=== PATIENT | female | born 1945 | race Caucasian/White ===

== ENCOUNTER → 2018-01-20 | Outpatient (CLI) | payer OTHER | LOC: FIMAGING 11:09 | PROVIDERS: ATTEND Physician Assistant Surgical | DX: M41.85 Other forms of scoliosis, thoracolumbar region (principal); M43.15 Spondylolisthesis, thoracolumbar region; M43.13 Spondylolisthesis, cervicothoracic region; M51.36 Other intervertebral disc degeneration, lumbar region; M16.0 Bilateral primary osteoarthritis of hip; Z98.1 Arthrodesis status ==

== ENCOUNTER 2018-03-16 05:55 | Inpatient (IN) | payer OTHER ==
[2018-03-16] MEDS ORDERED: ceFAZolin 2 GM/DEXTROSE 100 ML IV ONE (06:30)
[2018-03-16] MEDS ORDERED: ACETAMINOPHEN 500 MG TAB PO ONE (06:30)
[2018-03-16] MEDS ORDERED: morphINE PF 0.2 MG in SYRINGE INTRATHECAL 1 SYR IT ONE (06:30)
[2018-03-16] MEDS ORDERED: fentaNYL 50 MCG in SYRINGE INTRATHECAL 1 SYR IT ONE (06:30)
[2018-03-16] MEDS ORDERED: GABAPENTIN 300 MG CAP PO ONE (06:30)
[2018-03-16] MEDS ORDERED: CITRATE DEXTROSE SOLN 500 ML BAG ONE ×2 (06:32→11:29)
[2018-03-16] MEDS ORDERED: BUPIVACAINE 0.25% 30 ML SDV ONE (06:32)
[2018-03-16] MEDS ORDERED: CHLORHEXIDINE GLUC HIBICLENS 118 ML BTL TP ONE (06:32)
[2018-03-16] MEDS ORDERED: THROMBIN (BOVINE) 20,000 UNIT VIAL TP ONE ×2 (06:32→08:42)
[2018-03-16] MEDS ORDERED: BACITRACIN 50,000 UNITS/10 ML SYR IRR ONE ×2 (06:33→11:35)
[2018-03-16] MEDS ORDERED: NS 1,000 ML IV ONE (06:33)
[2018-03-16] MEDS ORDERED: EPINEPHrine 1 MG/ML INJ ONE (06:33)
[2018-03-16] MEDS ORDERED: fentaNYL 250 MCG/5 ML INJ ONE (06:47)
--- NOTE | 2018-03-16 06:47 | PDHPUP ---
History & Physical Update H&P update statement: This history and physical update is based on an assessment of the patient which was completed after admission or registration (within 24 hours), but prior to the surgery/procedure. H&P update: H&P reviewed & patient examined
[2018-03-16] MEDS ORDERED: PROPOFOL/EMULSION 500 MG/50 ML BOTTLE IV ONE ×3 (06:48→11:26)
--- NOTE | 2018-03-16 07:07 | PDANEPAE ---
ANE History of Present Illness 72 year old woman for L1-S1 TLIF. History of thoracic aneurysm, htn, cad, depression. ANE Past Medical History - Cardiovascular History Hx Hypertension: Yes Hx Arrhythmias: No Hx Chest Pain: No Hx Coronary Artery / Peripheral Vascular Disease: Yes Hx CHF / Valvular Disease: No Hx Palpitations: No Cardiovascular History Comment: cad. hyperlipidemia. htn. cardiology notes on chart - Pulmonary History Hx COPD: No Hx Asthma/Reactive Airway Disease: No Hx Recent Upper Respiratory Infection: No Hx Oxygen in Use at Home: No Hx Sleep Apnea: No Sleep Apnea Screening Result - Last Documented: Positive Pulmonary History Comment: jaylen positive uses oral device- instructed pt to bring to hospital - Neurologic History Hx Cerebrovascular Accident: No Hx Seizures: No Hx Dementia: No Neurologic History Comment: hx of spinal fusion - Endocrine History Hx Diabetes: No - Renal History Hx Renal Disorders: No - Liver History Hx Hepatic Disorders: No - Neurological & Psychiatric Hx Hx Neurological and Psychiatric Disorders: Yes Neurological / Psychiatric History Comment: anxiety. depression - Cancer History Hx Cancer: No - Congenital Disorder History Hx Congenital Disorders: No - GI History Hx Gastrointestinal Disorders: Yes Gastrointestinal History Comment: ibs with diarrhea. hx of recent colonoscopy - Other Health History Other Health History: none - Chronic Pain History Chronic Pain: Yes (whole back down legs) - Surgical History Prior Surgeries: left hip repair 2005. pelvic repair 2010 s/p ski accident. knee scope 2010. bunionectomy 2010. bilateral TKA 2008. hernia repair 2013. spinal fusion l4-5 2015. right small finger repair 2016. right hip repair 2016 ANE Review of Systems Review of systems is: negative Review of Systems: - Exercise capacity METS (RN): 4 METS ANE Patient History - Allergies Allergies/Adverse Reactions: Ephedrine Analogues Allergy (Verified 03/11/18 10:40) "I get hyper" midazolam [From Versed] Allergy (Verified 03/11/18 10:40) "takes me 2x as long after surgery as "normal" people take t pecan nut Allergy (Verified 03/11/18 10:51) Rash tree nut Allergy (Verified 03/11/18 10:51) Rash walnut Allergy (Verified 03/11/18 10:51) Rash - Home Medications Home Medications: Acetaminophen [Tylenol ES 500 mg (*)] 500 mg PO BID 03/05/18 [Last Taken ] Atorvastatin Calcium [Lipitor 40 mg (*)] 40 mg PO HS 03/05/18 [Last Taken ] Cholecalciferol Vit D3 [Vitamin D3 2000 units tab (OTC)] 2,000 units PO DAILY [Last Taken 03/11/18] Desvenlafaxine Succinate [Pristiq ER] 100 mg PO DAILY 03/05/18 [Last Taken 03/16] Eszopiclone [Lunesta] 3 mg PO HS 03/05/18 [Last Taken 03/15/18] Gabapentin [Neurontin 300 MG (*)] 300 mg PO DAILY 03/05/18 [Last Taken 03/16/18] Herbals/Supplements -Info Only 1 ea PO DAILY 03/05/18 [Last Taken 03/11/18] Ibuprofen [Motrin (*)] 400 mg PO DAILY 03/05/18 [Last Taken 03/11/18] Irbesartan [Avapro 150 mg (*)] 150 mg PO DAILY 03/05/18 [Last Taken 03/09/18] LORazepam [Ativan (*)] 0.5 mg PO DAILY PRN 03/05/18 [Last Taken 03/15/18] Metoprolol Tartrate [Lopressor 25 mg (*)] 25 mg PO BID 03/05/18 [Last Taken ] Multivitamins [Multivitamin (*)] 1 each PO DAILY 03/05/18 [Last Taken 03/11/18] Oxybutynin Chloride [Ditropan Xl] 10 mg PO DAILY 03/05/18 [Last Taken 03/16/18] - NPO status NPO Since - Liquids (Date): 03/16/18 NPO Since - Liquids (Time): 04:45 NPO Since - Solids (Date): 03/15/18 NPO Since - Solids (Time): 18:30 - Smoking Hx Smoking Status: Never smoked - Family Anes Hx Family Hx Anesthesia Complications: none ANE Labs/Vital Signs - Vital Signs Blood Pressure: 148/100 Heart Rate: 55 Respiratory Rate: 16 O2 Sat (%): 95 Height: 172.72 cm Weight: 68.04 kg ANE Physical Exam - Airway Neck exam: FROM Mallampati Score: Class 2 Mouth exam: normal dental/mouth exam - Pulmonary Pulmonary: no respiratory distress - Cardiovascular Cardiovascular: regular rate and rhythym - ASA Status ASA Status: III ANE Anesthesia Plan Anesthesia Plan: general endotracheal anesthesia Lines/Monitors: arterial line
[2018-03-16] MEDS ORDERED: TRANEXAMIC ACID 1,000 MG in NS 100 ML IV ONE (07:15)
[2018-03-16] MEDS ORDERED: ALBUMIN 5% 250 ML BOTTLE IV ONE (07:16)
[2018-03-16 08:16] LABS: PLATELET COUNT 256 10^3/uL (150-400)
[2018-03-16] MEDS ORDERED: ALBUTEROL 3 ML DEYVIAL IH PRN (09:12)
[2018-03-16] MEDS ORDERED: HYDROmorphONE/DILAUDID 2 MG/ML INJ IVP PRN (09:12)
[2018-03-16] MEDS ORDERED: NALOXONE HCL 0.4 MG/ML INJ IVP PRN ×2 (09:12→14:06)
[2018-03-16] MEDS ORDERED: ONDANSETRON 4 MG/2 ML VIAL IVP PRN ×2 (09:12→13:55)
[2018-03-16] MEDS ORDERED: LABETALOL HCL 5 MG/ML 20 ML MDV IVP PRN (09:12)
[2018-03-16] MEDS ORDERED: LR 500 ML IV PRN (09:12)
[2018-03-16] MEDS ORDERED: fentaNYL 100 MCG/2 ML INJ IVP PRN (09:12)
[2018-03-16] MEDS ORDERED: POLYMYXIN B SULFATE 500,000 UNIT/10 ML SYR IRR ONE (11:25)
[2018-03-16] MEDS ORDERED: TRANEXAMIC ACID 1,000 MG/10 ML VIAL ONE (11:30)
[2018-03-16] MEDS ORDERED: HYDROmorphONE/DILAUDID 2 MG/ML INJ ONE (12:49)
[2018-03-16] MEDS ORDERED: MAGNESIUM HYDROXIDE 30 ML UDCUP PO PRN (13:55)
[2018-03-16] MEDS ORDERED: diphenhydrAMINE 25 MG CAP PO PRN (13:55)
[2018-03-16] MEDS ORDERED: ONDANSETRON DISINTEGRATING 4 MG TAB PO PRN (13:55)
--- NOTE | 2018-03-16 13:55 | POSTOPPROG ---
Post Op Note Date of Operation: 03/16/18 Surgeon: Len Block Edge Baster: Hilton Tucker Anesthesiologist: Amber Meneses Anesthesia: GET(General Endotracheal) Pre-op Diagnosis: L2/3,3/4, L5/S1 DjD, scoliosis, stenosis Post-op Diagnosis: same Indication: back and bilateral leg pain. severe DJD, stenosis Procedure: L4/5 hardware removal, L2/3,3/4,5/S1 TLIF, L1-S1 instrumentation Findings: severe DJd, stenosis Inf/Abcess present in the surg proc area at time of surgery?: No EBL: Greater than 1000 Complications: none Drains: Jose Eduardo Stevens (to bulb suction) Specimen(s): none
[2018-03-16] MEDS ORDERED: NS 1,000 ML IV SCH (14:00)
--- NOTE | 2018-03-16 14:05 | SOAPPROG ---
SOAP Progress Note Assessment/Plan: POST OP CHECK: Doing well s/p L1-S1 fusion with L2,3/4,5/S1 TLIFs Plan: CPM in PACU and trasfer to floor per protocol LIZZY to bulb suction HOB as tolerated 03/16/18 14:02 Subjective: awake, comfortable Objective: Vital Signs Temp Pulse Resp BP Pulse Ox 36.6 C 55 L 16 148/100 H 95 03/16/18 06:47 03/16/18 07:07 03/16/18 07:07 03/16/18 07:07 03/16/18 07:07 Laboratory Results 03/16/18 12:14 Neuro: GAR to command, sens +LT conversant oriented x4 Vitals: BP:143/125 HR:79o 02:100% ICD10 Worksheet Patient Problems: Problems Problem Status Onset Chest pain Acute
[2018-03-16] MEDS ORDERED: morphINE PCA 30 MG/30 ML PCA IV PRN (14:06)
--- NOTE | 2018-03-16 14:37 | POSTANESTH ---
Post Anesthetic Evaluation Cardiovascular Status: Normal, Stable Respiratory Status: Normal, Stable Level of Consciousness/Mental Status: Mildly Sleepy, Arousable Pain Control: Adequate, Prn Tx Ordered Nausea/Vomiting Control: Adequate, Prn Tx Ordered Complications Possibly Related to Anesthesia: None Noted
[2018-03-16] MEDS: METHOCARBAMOL 750 MG TAB PO PRN (14:47)
--- NOTE | 2018-03-16 14:54 | PDMN ---
Medical Necessity Medical necessity: MCG 72 yo s/[place] [facility] [facility] [place] w/ hardware removal, MC IP only.
--- NOTE | 2018-03-16 16:01 | GOP ---
[f rep st] OPERATIVE REPORT DATE OF OPERATION: 03/16/2018 SURGEON: Len Block MD NEUROSURGEON: Len Block MD AUTOMOTIVE WINDOW TINTER: Hilton Tucker PA-C ANESTHESIA: General endotracheal. PREOPERATIVE DIAGNOSIS: Severe lumbar degenerative scoliosis with multilevel spinal stenosis. Progr essive scoliotic curve/deformity. Retained hardware from prior fusion. Failed conservative care. H igh risk surgical candidate given age of 72 years, comorbidities, and required surgical intervention. POSTOPERATIVE DIAGNOSIS: Severe lumbar degenerative scoliosis with multilevel spinal stenosis. Prog ressive scoliotic curve/deformity. Retained hardware from prior fusion. Failed conservative care. High risk surgical candidate given age of 72 years, comorbidities, and required surgical intervention . PROCEDURE PERFORMED: Removal of posterior nonsegmental (pedicle screw) fixation at L4-5 with explora tion of spinal fusion. Placement of posterior segmental (pedicle screw and axle device) fixation fro m L1-S1 with right-sided far lateral transpedicular decompressions at the L2-3, L3-4, and L5-S1 level s. A redo posterior hemilaminotomy and decompression at L4-5 on the right.. L2-3, L3-4, and L5-S1 p osterior/transforaminal lumbar interbody fusion with 2 structural PEEK interbody spacers, local autog raft and bone morphogenic protein. Use of intraoperative microscopy, fluoroscopy, and computer volum etric stereotactic navigation with intraoperative neurophysiologic testing. Injection of intrathecal narcotic analgesics for postoperative pain control. FINDINGS: ESTIMATED BLOOD LOSS: 1200 cc. INDICATIONS: The patient is a 72-year-old woman with severe multilevel lumbar degenerative scoliosis and spinal stenosis who has undergone a prior L4-5 instrumented decompression and fusion and now pre sents for removal and replacement of instrumentation and extension of the fusion rostrally and caudal ly due to the progressive scoliotic curve, spinal stenosis, and intractable pain and debilitation aft er failing conservative care. DESCRIPTION OF PROCEDURE: After informed consent was obtained, the patient was taken to the operatin g room and placed in a prone position on the Jose Eduardo table. The lumbosacral area was prepped and stephanie ped in a sterile fashion. After fluoroscopic localization of the correct levels, the subcu and intra muscular tissues were infiltrated with local anesthesia. A midline linear incision was then created from approximately L1 through S1. This was carried down to the fascial layer, which was then incised using the monopolar electrocautery and carried in the subperiosteal plane along the spinous processe s and lamina bilaterally. Intraoperative fluoroscopy was again utilized to verify the correct levels . Following this, the dissection was carried out over the facet joints and over the prior instrument ation, which was carefully identified and removed in standard fashion. The L4-5 fusion was explored and inspected and noted to be solid. Following this and removal of all the cortical tissue off the b ones, far lateral decompressions were performed on the right at the L2-3, L3-4, and L5-S1 levels. Th e redo posterior hemilaminectomy and foraminotomy and medial facetectomy at the L4-5 level in order t o adequately decompress the entire canal and neural foramen and to make sure she did not have new res idual lower extremity symptoms to the best of my ability after surgery. Following adequate decompres ankita and copious irrigation and meticulous hemostasis, the fluoro navigation system was brought in an d using computer volumetric stereotactic navigation, pedicle screws were placed at L1-L2, L3-L4, L5 a nd S1. Each individual screw was tested neurophysiologically with monopolar electrostimulation and i nterpretation of the potentials by the surgeon. Because the patient had extremely soft bone and not great purchase, I decided to bring the O-arm Navigational system in because the screws did look good on the fluoroscopy unit, but she had a couple of screws that stimulated low and was not super confide nt about them given the weak bone screw interface at multiple levels. The O-arm neuronavigational sy stem was then utilized to reconstruct the 3D images that were visualized, and in fact, the right L2 s crew was slightly lateral and the bilateral S1 screws were slightly long. All these screws were wicho antony and replaced with better screws and their position verified using radiographs. Following this, s erial distraction was created first at L5-S1, then at L3-4, then at L2-3, during which time complete diskectomies were performed with preparation of the endplates and placement of 2 structural PEEK inte rbody spacers, local autograft, and bone morphogenic protein at each level for L2-3, L3-4, and L5-S1 posterior/transforaminal lumbar interbody fusions. The short rods were then removed and longer rods extending from L1-S1 with maximal lordosis were placed and secured with the locking caps torqued to t he specified range by the pizza chef. The wound was again copiously irrigated. Meticulous hemosta sis was achieved. The remaining lamina, facet joints, and transverse processes were then extensively decorticated, and the residual local autograft, along with bone morphogenic protein was placed out l aterally from L1 to S1 for posterolateral fusion. 200 mcg of Duramorph, along with 50 mcg of fentany l were injected intrathecally for postoperative pain control. Axial devices were then placed at L1-2 and L5-S1 in order to hopefully avoid junctional kyphosis and hardware failure due to the very weak bone screw interface and high risk for postoperative problems. Following verification of good positi on of the axial devices using radiographs, a drain was placed. The wound was again copiously irrigat ed and meticulous hemostasis was achieved. The wound was then closed in a layered fashion using inte rrupted Vicryl sutures, followed by Steri-Strips on the skin. COMPLICATIONS: None. DISPOSITION: The patient was extubated and transferred to the recovery room in stable condition. /[id number]/MODL
[2018-03-16] MEDS: ACETAMINOPHEN 500 MG TAB PO SCH ×2 (16:38→22:01)
[2018-03-16] MEDS: GABAPENTIN 300 MG CAP PO SCH ×2 (16:39→22:03)
[2018-03-16] MEDS: ceFAZolin 2 GM/DEXTROSE 100 ML IV SCH ×2 (16:40→23:55)
[2018-03-16] MEDS: POLYETHYLENE GLYCOL 3350 17 GM PKT PO SCH ×2 (17:01→22:05)
[2018-03-16] MEDS: ATORVASTATIN CALCIUM 40 MG TAB PO SCH (22:01)
[2018-03-16] MEDS: METOPROLOL TARTRATE 25 MG TAB PO SCH (22:03)
[2018-03-16] MEDS: FAMOTIDINE 20 MG TAB PO SCH (22:03)
[2018-03-16] MEDS: SENNOSIDES/DOCUSATE SODIUM TAB PO SCH (22:07)
[2018-03-17] MEDS: GABAPENTIN 300 MG CAP PO SCH ×3 (05:00→21:25)
[2018-03-17 05:48] LABS: PLATELET COUNT 181 10^3/uL (150-400)
[2018-03-17] MEDS: ACETAMINOPHEN 500 MG TAB PO SCH (06:17)
--- NOTE | 2018-03-17 07:44 | SOAPPROG ---
SOAP Progress Note Assessment/Plan: Assessment: Doing well s/p L1-S1 fusion with L2,3/4,5/S1 TLIFs LIZZY productive Neuro stable pain currently well controlled Plan: Continue LIZZY drain Xrays this Am Lovenox starts at 0900 Will try Diana for pain control PRN Subjective: Awake, alert, pain currently well controlled. Denies new numbness tingling or weakness Objective: Vital Signs Temp Pulse Resp BP Pulse Ox 36.8 C 77 18 123/77 H 92 03/17/18 07:38 03/17/18 07:38 03/17/18 07:38 03/17/18 07:38 03/17/18 07:38 Laboratory Results 03/17/18 05:12 03/17/18 05:12 03/16/18 03/17/18 03/18/18 05:59 05:59 05:59 Intake Total 6700 Output Total 4225 90 Balance 2475 -90 Neuro: GAR, sens +LT 5/5 bilateral LE Dressing: Dried blood LIZZY: 90 ml overnight, 525 since surgery ICD10 Worksheet Patient Problems: Problems Problem Status Onset Chest pain Acute
[2018-03-17] MEDS ORDERED: ACETAMINOPHEN 500 MG TAB PO PRN (08:05)
[2018-03-17] MEDS: METHOCARBAMOL 750 MG TAB PO PRN ×2 (08:16→15:09)
[2018-03-17] MEDS: OXYBUTYNIN 5 MG EXT REL TAB PO SCH (08:16)
[2018-03-17] MEDS: CHOLECALCIFEROL VIT D3 2,000 UNITS TAB/CAP PO SCH (08:16)
[2018-03-17] MEDS: SENNOSIDES/DOCUSATE SODIUM TAB PO SCH ×2 (08:17→21:25)
[2018-03-17] MEDS: FAMOTIDINE 20 MG TAB PO SCH ×2 (08:17→21:25)
[2018-03-17] MEDS: ENOXAPARIN 40 MG/0.4 ML SYR SC SCH (08:17)
[2018-03-17] MEDS: Desvenlafaxine Succinate [Pristiq] 100 MG PO SCH (09:14)
[2018-03-17] MEDS: POLYETHYLENE GLYCOL 3350 17 GM PKT PO SCH ×3 (09:55→22:42)
[2018-03-17] MEDS: HYDROCODONE/APAP 5/325 TAB PO PRN ×3 (11:33→19:57)
[2018-03-17] MEDS: METOPROLOL TARTRATE 25 MG TAB PO SCH ×2 (11:39→21:23)
[2018-03-17] MEDS: IRBESARTAN 150 MG TAB PO SCH (11:39)
--- NOTE | 2018-03-17 14:25 | ASMTCMCOM ---
CM Note CM Note Notes: Pt had planned spinal surgery, resides with adult dghtr Racheal. PT rec HHC, OT rec home/HHC. Spoke with pt and dghtr about HHC rec, they are undecided if they return right away to [place]. It appears in Medicare.gov only one [facility] services [facility]. Pt reports she has already been in contact with [facility] to provide HC RN at d/c and she is interested in PT. Referral sent in [employer] to [facility], left a Voicemail for intake. If pt d/c to a local address another HC will have be found. CM to follow. D/c plan of care: Home with HHC RN/PT/OT Date Signed: 03/17/2018 02:24 PM Electronically Signed By:RAFA Boone
[2018-03-17] MEDS: Eszopiclone [Lunesta] 3 MG PO SCH (21:25)
[2018-03-17] MEDS: ATORVASTATIN CALCIUM 40 MG TAB PO SCH (21:25)
[2018-03-18] MEDS: HYDROCODONE/APAP 5/325 TAB PO PRN ×3 (01:39→11:34)
[2018-03-18] MEDS: POLYETHYLENE GLYCOL 3350 17 GM PKT PO SCH ×4 (01:45→21:53)
[2018-03-18] MEDS: GABAPENTIN 300 MG CAP PO SCH ×3 (05:38→21:49)
--- NOTE | 2018-03-18 07:54 | NEUSURGPN ---
Date of Surgery: 03/16/18 Post Op Day: 2 Assessment/Plan: Assessment:72 yr old F s/p L1-S1 fusion with L2,3/4,5/S1 TLIFs POD#2 Plan: PT/OT Continue LIZZY drain post op xrays stable hardware placement DVT ppx: Lovenox, TEDs/SCDs Pain management: increased back pain this am, will change Robaxin to scheduled Q6hr and can try ice prn Patient discussed with Dr Scales Please call neurosurgery with questions/concerns Subjective: increased back pain, no leg pain Objective: AxO x4 MAEx4 5/5 BUE, BLE Sensation intact to light touch BLE Incision/dressing-silver dressing dry saturation LIZZY patent Neuro Check Frequency: per routine Urinary Catheter in Place: No Catheter Insertion Date: 03/16/18 - Physician Discussed Patient with : Mckayla Neurosurgery Physical Exam - Vitals, I&O, Labs I and O 03/17/18 03/18/18 03/19/18 05:59 05:59 05:59 Intake Total 6700 650 Output Total 4225 2865 400 Balance 2475 -2215 -400 Weight 68.04 kg Intake: Oral (ml) 200 350 IV Intake (ml) 4400 IV Infused (ml) 1300 300 Ns 1,000 ml @ 100 mls/hr 1200 300 IV CONT CROW Rx#: [id number] ceFAZolin 2 GM/DEXTROSE 100 100 ml @ 200 mls/hr IV Q8H CROW Rx#:[id number] Packed Red Blood Cells ( 800 ml) Output: Urine (ml) 2200 2400 400 Catheter 2200 1300 Toilet 1100 400 Estimated Blood Loss (ml) 1500 LIZZY Drain Output (ml) 525 465 Back Jose Eduardo Stevens 525 465 Other: Intake Quantity Yes Yes Sufficient Number of Voids Toilet 1 1 Vital Signs Temp Pulse Resp BP Pulse Ox 37.1 C 67 16 112/68 95 03/18/18 07:36 03/18/18 07:36 03/18/18 07:36 03/18/18 07:36 03/18/18 07:36 Laboratory Results 03/17/18 05:12 03/17/18 05:12 ICD10 Worksheet Patient Problems: Problems Problem Status Onset Chest pain Acute
[2018-03-18] MEDS: METHOCARBAMOL 750 MG TAB PO SCH ×4 (08:19→21:48)
[2018-03-18] MEDS: OXYBUTYNIN 5 MG EXT REL TAB PO SCH (08:20)
[2018-03-18] MEDS: IRBESARTAN 150 MG TAB PO SCH (08:20)
[2018-03-18] MEDS: CHOLECALCIFEROL VIT D3 2,000 UNITS TAB/CAP PO SCH (08:21)
[2018-03-18] MEDS: FAMOTIDINE 20 MG TAB PO SCH ×2 (08:21→21:48)
[2018-03-18] MEDS: SENNOSIDES/DOCUSATE SODIUM TAB PO SCH ×2 (08:21→21:48)
[2018-03-18] MEDS: ENOXAPARIN 40 MG/0.4 ML SYR SC SCH (08:21)
[2018-03-18] MEDS: Desvenlafaxine Succinate [Pristiq] 100 MG PO SCH (08:31)
[2018-03-18] MEDS: METOPROLOL TARTRATE 25 MG TAB PO SCH ×2 (10:25→21:49)
--- NOTE | 2018-03-18 11:54 | ASMTCMCOM ---
CM Note CM Note Notes: Today PT rec HHC/SNF. Pt and adult children express concern about pt returning to [place] and request referral to [facility]. Referral sent in [facility] and Teresita reports [facility] can accept pt. Odilia Ennis with [facility] [phone] F:[phone] reports they can accept pt for HHC if pt ends up wanting to go home and needs HHC. D/c plan of care: [facility] Date Signed: 03/18/2018 02:59 PM Electronically Signed By:RAFA Boone
[2018-03-18] MEDS: HYDROmorphONE/DILAUDID 2 MG TAB PO PRN ×4 (13:12→22:58)
[2018-03-18] MEDS: ATORVASTATIN CALCIUM 40 MG TAB PO SCH (21:49)
[2018-03-18] MEDS: LACTULOSE 20 GM/30 ML UDCUP PO PRN (21:50)
[2018-03-18] MEDS: Eszopiclone [Lunesta] 3 MG PO SCH (21:52)
[2018-03-19] MEDS: HYDROmorphONE/DILAUDID 2 MG TAB PO PRN ×6 (03:05→23:47)
[2018-03-19] MEDS: GABAPENTIN 300 MG CAP PO SCH ×3 (05:11→21:07)
[2018-03-19] MEDS: METHOCARBAMOL 750 MG TAB PO SCH ×4 (05:11→20:15)
[2018-03-19] MEDS: METOPROLOL TARTRATE 25 MG TAB PO SCH ×3 (08:40→20:17)
[2018-03-19] MEDS: IRBESARTAN 150 MG TAB PO SCH (08:40)
--- NOTE | 2018-03-19 08:50 | NEUSURGPN ---
Assessment/Plan: Assessment:72 yr old F s/p L1-S1 fusion with L2,3/4,5/S1 TLIFs POD#3 Plan: PT/OT Continue LIZZY drain post op xrays stable hardware placement DVT ppx: Lovenox, TEDs/SCDs Pain management: pain tolerable this morning Patient discussed with Dr Loyda Crespo planning for tomorrow Please call neurosurgery with questions/concerns Subjective: Pain improved this morning with medication. Denies any new leg pain, numbness, tingling or weakness Objective: AxO x3 NAD MAEx4 5/5 BUE, BLE Sensation intact to light touch BLE Incision/dressing-silver dressing dry saturation LIZZY patent Catheter Insertion Date: 03/16/18 - Physician Discussed Patient with : Mckayla Neurosurgery Physical Exam - Vitals, I&O, Labs I and O 03/18/18 03/19/18 03/20/18 05:59 05:59 05:59 Intake Total 650 350 Output Total 2865 975 50 Balance -2215 -625 -50 Intake: Oral (ml) 350 350 IV Infused (ml) 300 Ns 1,000 ml @ 100 mls/hr 300 IV CONT CROW Rx#: [id number] Output: Urine (ml) 2400 700 Catheter 1300 Toilet 1100 700 LIZZY Drain Output (ml) 465 275 50 Back Jose Eduardo Stevens 465 275 50 Other: Intake Quantity Yes Yes Sufficient Number of Voids Toilet 1 1 Vital Signs Temp Pulse Resp BP Pulse Ox 37.1 C 79 20 105/68 94 03/19/18 08:00 03/19/18 08:00 03/19/18 08:00 03/19/18 08:00 03/19/18 08:00 Laboratory Results 03/17/18 05:12 03/17/18 05:12 ICD10 Worksheet Patient Problems: Problems Problem Status Onset Chest pain Acute
[2018-03-19] MEDS: OXYBUTYNIN 5 MG EXT REL TAB PO SCH (10:18)
[2018-03-19] MEDS: FAMOTIDINE 20 MG TAB PO SCH ×2 (10:18→20:15)
[2018-03-19] MEDS: CHOLECALCIFEROL VIT D3 2,000 UNITS TAB/CAP PO SCH (10:18)
[2018-03-19] MEDS: ENOXAPARIN 40 MG/0.4 ML SYR SC SCH (10:18)
[2018-03-19] MEDS: Desvenlafaxine Succinate [Pristiq] 100 MG PO SCH (10:20)
[2018-03-19] MEDS: SENNOSIDES/DOCUSATE SODIUM TAB PO SCH ×2 (10:30→21:07)
[2018-03-19] MEDS: POLYETHYLENE GLYCOL 3350 17 GM PKT PO SCH ×3 (12:53→21:09)
--- NOTE | 2018-03-19 14:19 | ASMTCMCOM ---
CM Note CM Note Notes: Pt d/c plan remains [facility] tomorrow. Odiila Ennis at [facility] [phone] updated. Date Signed: 03/19/2018 02:19 PM Electronically Signed By:RAFA Boone
[2018-03-19] MEDS: BISACODYL 10 MG SUPP PR PRN (15:50)
[2018-03-19] MEDS: ATORVASTATIN CALCIUM 40 MG TAB PO SCH (20:10)
[2018-03-19] MEDS: Eszopiclone [Lunesta] 3 MG PO SCH (21:08)
[2018-03-20] MEDS: HYDROmorphONE/DILAUDID 2 MG TAB PO PRN ×4 (04:13→15:28)
[2018-03-20] MEDS: METHOCARBAMOL 750 MG TAB PO SCH ×3 (05:08→15:20)
[2018-03-20] MEDS: GABAPENTIN 300 MG CAP PO SCH ×2 (05:08→14:08)
[2018-03-20] MEDS: ENOXAPARIN 40 MG/0.4 ML SYR SC SCH (08:27)
[2018-03-20] MEDS: FAMOTIDINE 20 MG TAB PO SCH (08:29)
[2018-03-20] MEDS: CHOLECALCIFEROL VIT D3 2,000 UNITS TAB/CAP PO SCH (08:29)
[2018-03-20] MEDS: IRBESARTAN 150 MG TAB PO SCH (08:30)
[2018-03-20] MEDS: METOPROLOL TARTRATE 25 MG TAB PO SCH (08:31)
[2018-03-20] MEDS: SENNOSIDES/DOCUSATE SODIUM TAB PO SCH (08:31)
[2018-03-20] MEDS: OXYBUTYNIN 5 MG EXT REL TAB PO SCH (08:33)
[2018-03-20] MEDS: POLYETHYLENE GLYCOL 3350 17 GM PKT PO SCH (08:35)
[2018-03-20] MEDS: Desvenlafaxine Succinate [Pristiq] 100 MG PO SCH (08:40)
--- NOTE | 2018-03-20 10:28 | NEUSURGPN ---
Assessment/Plan: Assessment/Plan: Assessment:72 yr old F s/p L1-S1 fusion with L2,3/4,5/S1 TLIFs POD#4 Plan: PT/OT Continue LIZZY drain- can be removed on Thursday Will increase oxybutinin to see if this help more Aggressive BM care- has not had BM in 5 days and needs to have one prior to going to rehab post op xrays stable hardware placement DVT ppx: Lovenox, TEDs/SCDs Pain management: pain tolerable this morning Patient discussed with Dr Loyda Crespo planning- hopeful to go today if has BM Please call neurosurgery with questions/concerns Subjective: Pain improving, main complaint is BM and urinary problems. Objective: AxO x3 NAD MAEx4 5/ BUE, BLE Sensation intact to light touch BLE Incision/dressing-silver dressing dry saturation LIZZY patent Catheter Insertion Date: 03/16/18 - Physician Discussed Patient with : Mckayla Neurosurgery Physical Exam - Vitals, I&O, Labs I and O 03/19/18 03/20/18 03/21/18 05:59 05:59 05:59 Intake Total 350 450 Output Total 975 180 Balance -625 270 Intake: Oral (ml) 350 450 Output: Urine (ml) 700 Toilet 700 LIZZY Drain Output (ml) 275 180 Back Jose Eduardo Stevens 275 180 Other: Intake Quantity Yes Yes Sufficient Number of Voids Toilet 1 2 Number of Stools Toilet 1 Vital Signs Temp Pulse Resp BP Pulse Ox 37.0 C 86 16 133/89 H 93 03/20/18 07:41 03/20/18 07:41 03/20/18 07:41 03/20/18 07:41 03/20/18 07:41 Laboratory Results 03/17/18 05:12 03/17/18 05:12 ICD10 Worksheet Patient Problems: Problems Problem Status Onset Chest pain Acute
[2018-03-20] MEDS ORDERED: OXYBUTYNIN 5 MG EXT REL TAB PO SCH (10:31)
[2018-03-20] MEDS: LACTULOSE 20 GM/30 ML UDCUP PO PRN (11:44)
[2018-03-20 11:52] VITALS: BP 117/77
--- NOTE | 2018-03-20 12:11 | PDIAF ---
- Diagnosis Code Status: Full Code - Medication Management Discharge Medications: electronically signed and located in the Home Medication List. - Orders Diet Recommendation: no restrictions on diet Wound Care Instructions: Keep dressing on until 7 days postop then may remove Additional Instructions: Remove drain on Thursday. Please place dry gauze over incision and drain whole site. - Follow Up Care Current Providers and Referrals: TORIN BERNAL [Other] Len Block MD [Medical Doctor] -
[2018-03-20] MEDS: BISACODYL 10 MG SUPP PR PRN (13:18)
[2018-03-20] MEDS ORDERED: MAGNESIUM CITRATE 300 ML BOTTLE PO ONE (14:15)
== END 2018-03-20 15:33 | DRG 455 ==
LOC: F3N 05:55
PROVIDERS: ADMIT Neurological Surgery; ATTEND Neurological Surgery
DX: M47.816 Spondylosis without myelopathy or radiculopathy, lumbar region (principal); M47.817 Spondylosis without myelopathy or radiculopathy, lumbosacral region; M41.9 Scoliosis, unspecified; M48.061 Spinal stenosis, lumbar region without neurogenic claudication; M48.07 Spinal stenosis, lumbosacral region; I10 Essential (primary) hypertension; E78.5 Hyperlipidemia, unspecified; I25.10 Atherosclerotic heart disease of native coronary artery without angina pectoris; G47.33 Obstructive sleep apnea (adult) (pediatric); Z98.1 Arthrodesis status
CPT/HCPCS: 97116-GP; 97161-GP; 97165-GO; 97530-GO; 97530-GP; 97535-GO; C1713; J0171; J0690; J1170; J1650; J2270; J2274; J2704; J3010; P9016; P9041

== ENCOUNTER → 2018-06-09 | Outpatient (CLI) | payer OTHER | LOC: FIMAGING 11:24 | PROVIDERS: ATTEND Physician Assistant Surgical | DX: Z09 Encounter for follow-up examination after completed treatment for conditions other than malignant neoplasm (principal); Z98.1 Arthrodesis status; M16.0 Bilateral primary osteoarthritis of hip; M43.16 Spondylolisthesis, lumbar region ==